=== PATIENT | male | born 1960 | race Two or more races ===

== ENCOUNTER 2020-05-21 16:54 | Emergency (ER) | payer MEDICARE, MEDICAID ==
[~2020-05-21] VITALS: Ht 152.4 cm; Wt 59.0 kg
[2020-05-21 17:24] VITALS: BP 110/70
== END 2020-05-21 18:21 | disposition home or self-care (01) ==
LOC: ER 16:54
DX: R50.9 Fever, unspecified (principal); R06.02 Shortness of breath; R05 Cough; Z20.828 Contact with and (suspected) exposure to other viral communicable diseases
CPT/HCPCS: 71045; 99284; U0003

== ENCOUNTER → 2021-11-28 | Outpatient (CLI) | payer OTHER ==
[2021-11-28 07:12] LABS: Urine Amorphous Crystal FEW /hpf (None Seen); Urine Bacteria NONE SEEN /hpf (None Seen); Urine Blood Negative /uL (Negative); Urine Specific Gravity 1.015 (1.001-1.035); Urine WBC 1 /hpf (0 - 3)
[2021-11-28 07:25] LABS: Basophils # (auto) 0 10 ^3/uL (0-0.2); Basophils % (auto) 0.6 % (0.0-2.0); Eosinophils # (auto) 0.2 10 ^3/uL (0-0.8); Eosinophils % (auto) 3.6 % (0.0-7.0); Hematocrit 34.6 % (41.0-53.0); Hemoglobin 11.7 g/dL (13.5-17.5); Lymphocytes # (auto) 0.9 10 ^3/uL (0.4-5.4); Lymphocytes % (auto) 18.9 % (10.0-50.0); Mean Corpuscular Hemoglobin 31.1 pg (28.0-32.0); Mean Corpuscular Hgb Conc. 33.8 g/dL (32.0-36.0); Monocytes # (auto) 0.3 10 ^3/uL (0-1.3); Monocytes % (auto) 7.4 % (0.0-12.0); Neutrophils # (auto) 3.2 10 ^3/uL (1.6-8.6); Neutrophils % (auto) 69.5 % (37.0-80.0); Nucleated Red Blood Cells % 0.1 %; Red Blood Cells 3.75 10^6/uL (4.5-5.90); White Blood Cell 4.6 10^3/uL (4.4-10.8)
[2021-11-28 07:41] LABS: Albumin 3.6 g/dL (3.4-5.0); BUN/Creatinine Ratio 20.7; Calcium 9.1 mg/dL (8.5-10.1); Potassium 4.4 mmol/L (3.5-5.1)
[2021-11-28 07:45] LABS: Bilirubin, Total 0.4 mg/dL (0.2-1.0)
== END | disposition home or self-care (01) ==
LOC: LAB 06:44
PROVIDERS: ATTEND Student in an Organized Health Care Education/Training Program
DX: E11.9 Type 2 diabetes mellitus without complications (principal); I10 Essential (primary) hypertension
CPT/HCPCS: 36415; 80053; 80061; 81001; 82043; 83036; 84153; 84443; 85025

== ENCOUNTER → 2022-06-12 | Outpatient (CLI) | payer OTHER | END | disposition home or self-care (01) | LOC: LAB 11:48 | PROVIDERS: ATTEND Urology | DX: R97.20 Elevated prostate specific antigen [PSA] (principal) | CPT/HCPCS: 84153 ==

== ENCOUNTER 2022-08-14 07:20 | Day surgery (SDC) | payer OTHER ==
[2022-08-11 11:12] LABS: Basophils # (auto) 0 10 ^3/uL (0-0.2); Basophils % (auto) 0.7 % (0.0-2.0); Eosinophils # (auto) 0.2 10 ^3/uL (0-0.8); Hematocrit 36.4 % (41.0-53.0); Hemoglobin 11.8 g/dL (13.5-17.5); Lymphocytes # (auto) 0.8 10 ^3/uL (0.4-5.4); Lymphocytes % (auto) 21.8 % (10.0-50.0); Mean Corpuscular Hgb Conc. 32.4 g/dL (32.0-36.0); Mean Corpuscular Volume 92.5 fL (80.0-100.0); Monocytes # (auto) 0.3 10 ^3/uL (0-1.3); Monocytes % (auto) 6.7 % (0.0-12.0); Neutrophils # (auto) 2.5 10 ^3/uL (1.6-8.6); Neutrophils % (auto) 65.8 % (37.0-80.0); Nucleated Red Blood Cells % 0.2 %; Red Blood Cells 3.94 10^6/uL (4.5-5.90); Red Cell Distribution Width 13.9 % (11.8-14.3); White Blood Cell 3.8 10^3/uL (4.4-10.8)
[2022-08-11 11:52] LABS: Urine Bacteria FEW /hpf (None Seen); Urine Blood Negative /uL (Negative); Urine Mucus FEW (None Seen); Urine Specific Gravity 1.019 (1.001-1.035); Urine WBC 1 /hpf (0 - 3)
[2022-08-11 11:59] LABS: Albumin 3.7 g/dL (3.4-5.0); Calcium 9.1 mg/dL (8.5-10.1); Potassium 4.7 mmol/L (3.5-5.1)
[2022-08-11 12:04] LABS: Bilirubin, Total 0.5 mg/dL (0.2-1.0); Total Protein 6.9 g/dL (6.4-8.2)
[2022-08-11 12:07] LABS: INR 1.03 (0.9-1.15); Partial Thromboplastin Time 26.8 sec (24.6-33.4)
[~2022-08-14] VITALS: Ht 152.4 cm; Wt 60.8 kg
[~2022-08-14 07:20] MED LIST: ACET325T82 PO; ASPI1TAB20 PO; BACL20TA PO; CETI10TA2 PO; DOCU100T15 PO; FENO160T8 PO; FINA5TAB4 PO; GABA300C10 PO; INSUINJ37 SC; LOSA-69 PO; METF-372 PO; MORP15TA PO; OMEP20TA PO; PIOG1TAB51 OR; SIMV10TA84 PO; TAMS0.4C36 PO; TRIA0.1O TOP
[2022-08-14] MEDS ORDERED: CIPROFLOXACIN 400MG/200ML 200 ML IV ONE (08:02)
[2022-08-14] MEDS ORDERED: HYDROmorphone HCL 2 MG/ML VL/or syr IV PRN ×2 (08:30)
[2022-08-14] MEDS ORDERED: MORPHINE SULFATE 4 MG/ML SYR/VIAL IV PRN (08:30)
[2022-08-14] MEDS ORDERED: METOCLOPRAMIDE HCL 5MG/ml INJ 2ml VIAL IV PRN (08:30)
[2022-08-14] MEDS ORDERED: SODIUM CHLORIDE LOCK 10 ML ONE (08:38)
[2022-08-14] MEDS ORDERED: DexAMETHasone SOD PHOS 10MG/1ML VIAL INJ ONE (08:38)
[2022-08-14] MEDS ORDERED: PROPOFOL 10 MG/ML 20 ML IV ONE (08:38)
[2022-08-14] MEDS ORDERED: MIDAZOLAM HCL 2MG/2ML 2ml VIAL (1mg/ml) ONE (08:38)
[2022-08-14] MEDS ORDERED: KETAMINE HCL 10 ML ONE (08:38)
[2022-08-14] MEDS ORDERED: fentaNYL CITRATE 100 MCG/2 ML VL ONE (08:38)
[2022-08-14] MEDS ORDERED: IOHEXOL 300 MG/ML 100ML BOTTLE IJ ONE (10:18)
[2022-08-14] MEDS ORDERED: LIDOCAINE 2% JELLY 11ml (GLYDO) ONE (10:20)
[2022-08-14 12:45] VITALS: BP 165/51
== END 2022-08-14 13:18 | disposition home or self-care (01) ==
LOC: SUR 07:20
PROVIDERS: ATTEND Urology
DX: N35.919 Unspecified urethral stricture, male, unspecified site (principal); I10 Essential (primary) hypertension; E11.9 Type 2 diabetes mellitus without complications; Z20.822 Contact with and (suspected) exposure to COVID-19; Z79.899 Other long term (current) drug therapy; Z79.84 Long term (current) use of oral hypoglycemic drugs; N40.1 Benign prostatic hyperplasia with lower urinary tract symptoms; N13.8 Other obstructive and reflux uropathy
CPT/HCPCS: 36415; 52276; 80053; 81001; 82962; 85025; 85610; 85730; 86850; 86900; 86901; J0744; J1100; J2250; J2704; J3010; U0003

== ENCOUNTER 2023-10-22 08:05 | Day surgery (SDC) | payer OTHER, MEDICAID ==
[2023-10-16 13:20] LABS: Basophils # (auto) 0 10 ^3/uL (0-0.2); Basophils % (auto) 0.5 % (0.0-2.0); Eosinophils # (auto) 0.1 10 ^3/uL (0-0.8); Eosinophils % (auto) 2.8 % (0.0-7.0); Hematocrit 36.1 % (41.0-53.0); Hemoglobin 11.9 g/dL (13.5-17.5); Lymphocytes % (auto) 23.5 % (10.0-50.0); Mean Corpuscular Hemoglobin 30.7 pg (28.0-32.0); Mean Corpuscular Hgb Conc. 32.8 g/dL (32.0-36.0); Mean Corpuscular Volume 93.5 fL (80.0-100.0); Monocytes # (auto) 0.3 10 ^3/uL (0-1.3); Monocytes % (auto) 7.4 % (0.0-12.0); Neutrophils # (auto) 2.8 10 ^3/uL (1.6-8.6); Neutrophils % (auto) 65.8 % (37.0-80.0); Red Blood Cells 3.86 10^6/uL (4.5-5.90); Red Cell Distribution Width 14.1 % (11.8-14.3); White Blood Cell 4.2 10^3/uL (4.4-10.8)
[2023-10-16 13:49] LABS: Urine Bacteria NONE SEEN /hpf (None Seen); Urine Blood Negative /uL (Negative); Urine Clarity Clear (Clear); Urine Color Yellow (Yellow); Urine Protein, UAD TRACE (Negative); Urine Specific Gravity 1.022 (1.001-1.035); Urine Urobilinogen Normal (Negative); Urine WBC <1 /hpf (0 - 3); Urine pH 6.5 (5.0-8.0)
[2023-10-16 13:58] LABS: INR 1.03 (0.9-1.15); Partial Thromboplastin Time 27.6 SEC (24.5-34.5); Prothrombin Time 10.8 sec (9.3-11.8)
[2023-10-16 14:08] LABS: Alanine Aminotransferase 25 U/L (7-40); Alkaline Phosphatase 60 U/L (46-116); Anion Gap 8 (5-15); Aspartate Aminotransferase 25 U/L (13-40); BUN/Creatinine Ratio 17.9 (10.0-20.0); Blood Urea Nitrogen 15 mg/dL (9-23); Carbon Dioxide 25 mmol/L (20-30); Chloride 105 mmol/L (98-107); Glucose 192 mg/dL (74-106); Potassium 4.6 mmol/L (3.5-5.1); Sodium 138 mmol/L (136-145)
[2023-10-16 14:09] LABS: Albumin 4.2 g/dL (3.2-4.8); Bilirubin, Total 0.5 mg/dL (0.2-1.0); Total Protein 6.6 g/dL (5.7-8.2)
[~2023-10-22] VITALS: Ht 152.4 cm; Wt 63.5 kg
[~2023-10-22 08:05] MED LIST changes: +FENO160T PO; -FENO160T8 PO; +GABA-1250 PO; -GABA300C10 PO; -LOSA-69 PO; +LOSA50TA46 PO; +SIMV10TA20 PO; -SIMV10TA84 PO
[2023-10-22 09:45] VITALS: RESP 10; TEMP 97; O2SAT 98
[2023-10-22 10:15] VITALS: BP 119/63; PULSE 66; RESP 12; O2SAT 98
[2023-10-22] MEDS ORDERED: HYDROmorphone HCL 2 MG/ML VL/or syr IV PRN (10:15)
[2023-10-22] MEDS ORDERED: LABETALOL HCL 5 MG/ML 4ML SYRINGE IV PRN (10:15)
[2023-10-22] MEDS ORDERED: MIDAZOLAM HCL 2MG/2ML 2ml VIAL (1mg/ml) IV PRN (10:15)
[2023-10-22] MEDS ORDERED: MORPHINE SULFATE 4 MG/ML SYR/VIAL IV PRN (10:15)
[2023-10-22] MEDS ORDERED: ePHEDrine SULFATE 50 MG/ML AMP IV PRN (10:15)
[2023-10-22] MEDS ORDERED: ONDANSETRON HCL 4 MG/2 ML VIAL IV PRN (10:15)
== END 2023-10-22 10:34 | disposition home or self-care (01) ==
LOC: SUR 08:05
PROVIDERS: ATTEND Urology
DX: R35.1 Nocturia (principal); N35.919 Unspecified urethral stricture, male, unspecified site; I10 Essential (primary) hypertension; E11.9 Type 2 diabetes mellitus without complications; R39.15 Urgency of urination; R35.0 Frequency of micturition; E78.5 Hyperlipidemia, unspecified; Z79.899 Other long term (current) drug therapy; Z79.84 Long term (current) use of oral hypoglycemic drugs; K21.9 Gastro-esophageal reflux disease without esophagitis
CPT/HCPCS: 36415; 52281; 80053; 81001; 82962; 85025; 85610; 85730; 87086; C1769; J7030

== ENCOUNTER → 2023-11-30 | Outpatient (CLI) | payer OTHER, MEDICAID ==
[2023-11-30 11:08] LABS: Urine Bacteria NONE SEEN /hpf (None Seen); Urine Blood Negative /uL (Negative); Urine Clarity Clear (Clear); Urine Color Yellow (Yellow); Urine Protein, UAD Negative (Negative); Urine Specific Gravity 1.016 (1.001-1.035); Urine Urobilinogen Normal (Negative); Urine WBC <1 /hpf (0 - 3)
== END | disposition home or self-care (01) ==
LOC: LAB 10:50
PROVIDERS: ATTEND Urology
DX: R35.1 Nocturia (principal)
CPT/HCPCS: 81001; 87086

== ENCOUNTER → 2024-11-29 | Outpatient (CLI) | payer MEDICARE, MEDICAID ==
[~2024-11-29] MED LIST changes: +LOSA-534 PO; -LOSA50TA46 PO; -TAMS0.4C36 PO; +TAMS0.4C39 PO
[2024-11-29 10:09] LABS: Urine Blood Negative /uL (Negative); Urine Clarity Clear (Clear); Urine Color Colorless (Yellow); Urine Protein, UAD TRACE (Negative); Urine Specific Gravity 1.012 (1.001-1.035); Urine Squamous Epithelial Cell None Seen /hpf (<5); Urine Urobilinogen Normal (Negative); Urine pH 7.5 (5.0-9.0)
[2024-11-29 10:10] LABS: Basophils # (auto) 0 10 ^3/uL (0-0.2); Basophils % (auto) 0.6 % (0.0-2.0); Eosinophils # (auto) 0.5 10 ^3/uL (0-0.8); Eosinophils % (auto) 9.7 % (0.0-7.0); Hematocrit 36.8 % (41.0-53.0); Hemoglobin 12.4 g/dL (13.5-17.5); Mean Corpuscular Hgb Conc. 33.7 g/dL (32.0-36.0); Mean Corpuscular Volume 92.1 fL (80.0-100.0); Monocytes # (auto) 0.4 10 ^3/uL (0-1.3); Monocytes % (auto) 7.2 % (0.0-12.0); Neutrophils # (auto) 3.5 10 ^3/uL (1.6-8.6); Neutrophils % (auto) 64.5 % (37.0-80.0); Platelet Count (auto) 248 10^3/uL (140-450); White Blood Cell 5.4 10^3/uL (4.4-10.8)
[2024-11-29 10:18] LABS: Alanine Aminotransferase 29 U/L (7-40); Albumin 4.6 g/dL (3.2-4.8); Alkaline Phosphatase 86 U/L (46-116); Anion Gap 8 (5-15); Aspartate Aminotransferase 19 U/L (13-40); Blood Urea Nitrogen 17 mg/dL (9-23); Carbon Dioxide 25 mmol/L (20-31); Chloride 105 mmol/L (98-107); LDL Cholesterol 75 mg/dL (< 100); Sodium 138 mmol/L (136-145); Triglycerides 147 mg/dL (< 150)
[2024-11-29 10:19] LABS: Bilirubin, Total 0.4 mg/dL (0.2-1.0); Cholesterol 128 mg/dL (< 200)
[2024-11-29 10:27] LABS: Glucose 219 mg/dL (74-106); HDL Cholesterol 40 mg/dL (40-59)
[2024-11-29 12:01] LABS: Urine Bacteria FEW /hpf (None Seen); Urine WBC < 1 /HPF (0-3)
[2024-11-29 12:37] LABS: Creatinine, Urine 18.58 mg/dL (30.0-125.0)
== END | disposition home or self-care (01) ==
LOC: LAB 09:18
PROVIDERS: ATTEND Student in an Organized Health Care Education/Training Program
DX: N40.1 Benign prostatic hyperplasia with lower urinary tract symptoms (principal); I10 Essential (primary) hypertension; E11.9 Type 2 diabetes mellitus without complications; K21.9 Gastro-esophageal reflux disease without esophagitis
CPT/HCPCS: 36415; 80053; 80061; 81001; 82043; 82570; 83036; 84153; 84443; 85025

== ENCOUNTER → 2025-01-13 | Outpatient (CLI) | payer OTHER, MEDICAID ==
[2025-01-13 06:34] LABS: Urine Bacteria None Seen /hpf (None Seen)
[2025-01-13 08:54] LABS: Urine Blood Negative /uL (Negative); Urine Clarity Clear (Clear); Urine Color Light-Yellow (Yellow); Urine Protein, UAD TRACE (Negative); Urine Specific Gravity 1.013 (1.001-1.035); Urine Squamous Epithelial Cell None Seen /hpf (<5); Urine Urobilinogen Normal (Negative); Urine WBC < 1 /HPF (0-3); Urine pH 6.5 (5.0-9.0)
== END | disposition home or self-care (01) ==
LOC: LAB 06:31
PROVIDERS: ATTEND Urology
DX: N40.0 Benign prostatic hyperplasia without lower urinary tract symptoms (principal)
CPT/HCPCS: 81001; 87086; 87088; 87186

== ENCOUNTER → 2025-03-31 | Day surgery (SDC) | payer MEDICAID ==
[2025-03-30 09:32] LABS: Urine Bacteria None Seen /hpf (None Seen)
[2025-03-30 09:42] LABS: Basophils # (auto) 0 10 ^3/uL (0-0.2); Basophils % (auto) 0.5 % (0.0-2.0); Eosinophils # (auto) 0.2 10 ^3/uL (0-0.8); Eosinophils % (auto) 2.9 % (0.0-7.0); Hematocrit 35.6 % (41.0-53.0); Hemoglobin 11.9 g/dL (13.5-17.5); Lymphocytes # (auto) 0.7 10 ^3/uL (0.4-5.4); Lymphocytes % (auto) 11.9 % (10.0-50.0); Mean Corpuscular Hemoglobin 30.2 pg (28.0-32.0); Mean Corpuscular Hgb Conc. 33.5 g/dL (32.0-36.0); Mean Corpuscular Volume 90.2 fL (80.0-100.0); Monocytes # (auto) 0.3 10 ^3/uL (0-1.3); Neutrophils # (auto) 4.5 10 ^3/uL (1.6-8.6); Neutrophils % (auto) 78.7 % (37.0-80.0); Platelet Count (auto) 213 10^3/uL (140-450); Red Blood Cells 3.95 10^6/uL (4.5-5.90); White Blood Cell 5.7 10^3/uL (4.4-10.8)
[2025-03-30 09:52] LABS: Urine Blood Negative /uL (Negative); Urine Clarity Clear (Clear); Urine Color Light-Yellow (Yellow); Urine Protein, UAD TRACE (Negative); Urine Specific Gravity 1.018 (1.001-1.035); Urine Squamous Epithelial Cell None Seen /hpf (<5); Urine Urobilinogen Normal (Negative); Urine WBC < 1 /HPF (0-3)
[2025-03-30 09:56] LABS: INR 0.92 (0.9-1.15); Partial Thromboplastin Time 27.1 SEC (24.5-34.5); Prothrombin Time 9.8 sec (9.3-11.8)
[2025-03-30 10:09] LABS: Alanine Aminotransferase 24 U/L (7-40); Albumin 4.2 g/dL (3.2-4.8); Alkaline Phosphatase 102 U/L (46-116); Anion Gap 7 (5-15); Aspartate Aminotransferase 14 U/L (13-40); BUN/Creatinine Ratio 23.4 (10.0-20.0); Blood Urea Nitrogen 18 mg/dL (9-23); Calcium 10.3 mg/dL (8.7-10.4); Carbon Dioxide 27 mmol/L (20-31); Chloride 104 mmol/L (98-107); Potassium 4.7 mmol/L (3.5-5.1); Sodium 138 mmol/L (136-145); Total Protein 6.7 g/dL (5.7-8.2)
[2025-03-30 10:10] LABS: Bilirubin, Total 0.4 mg/dL (0.2-1.0)
[2025-03-30 10:15] LABS: Glucose 289 mg/dL (74-106)
[~2025-03-31] VITALS: Ht 152.4 cm; Wt 63.5 kg
[~2025-03-31] MED LIST changes: -ACET325T82 PO; -BACL20TA PO; -CETI10TA2 PO; +CIPROFLOXACIN 400MG/200ML 200 ML IV ONE; -FENO160T PO; -GABA-1250 PO; +HYDROmorphone HCL 2 MG/ML VL/or syr IV PRN; -INSUINJ37 SC; +METOCLOPRAMIDE HCL 5MG/ml INJ 2ml VIAL IV ONE; +METOCLOPRAMIDE HCL 5MG/ml INJ 2ml VIAL ONE; +MIDAZOLAM HCL 2MG/2ML 2ml VIAL (1mg/ml) ONE; -MORP15TA PO; +ONDANSETRON HCL 4 MG/2 ML VIAL IV ONE; +ONDANSETRON HCL 4 MG/2 ML VIAL ONE; +PROPOFOL 10 MG/ML 20 ML IV ONE; -SIMV10TA20 PO; +SIMV20TA20 PO; +SITA50TA PO; +SODIUM CHLORIDE LOCK 20 ML ONE; +SUCR1TAB31 OR; +TRAM-626 PO; -TRIA0.1O TOP; +ePHEDrine SULFATE 50 MG/ML AMP ONE; +fentaNYL CITRATE 100 MCG/2 ML VL ONE; +hydrALAZINE HCL 20 MG/ML VL IV PRN
[2025-03-31] MEDS: ONABOTULINUMTOXINA 200 UNIT INJ IM ONE (10:33)
[2025-03-31 10:50] VITALS: PULSE 95; RESP 10; TEMP 97.8; O2SAT 95
--- NOTE | 2025-03-31 10:58 | DVHNC2 ---
Procedure - OPERATIVE REPORT Pre-op. Diagnosis: Refractory OAB Urinary frequency /Nocturia 5-8 times Urinary urgency Urge incontinence history of urethral stricture disease Post-op. Diagnosis: Same as pre-op diagnosis Operation: Cystoscopy with intravesical Botox injections (39576) cystoscopy with urethral calibration Anesthesia: General Indications: Patient has refarctory OAB with severe urinary frequency/urgency. He is a candidate for sacral nerve stimulation trial, but his insurance denied it INFORMED CONSENT: Indications, risks, complications, alternatives and benefits of cystoscopy with direct visual internal urethrotomy and possible intravesical Botox injections are discussed with patient. All questions were encouraged and answered. Patient is aware of specific risks/complications including but not limited to infection, bleeding, persistent urinary hematuria, urinary incontinence and urinary retention. Patient consented to proceed. Details of Procedure: PROCEDURE IN DETAIL: Patient is taken to Operating suite and given appropriate anesthesia. After prepping and draping the patient in the lithotomy position, 21 F rigid cystoscope is introduced into the bladder. There was no significant urethral stricture disease noted. He did have some proximal stenosis that was dilated by cystoscope. Internal urethrotomy was not necessary.Next Cystoscopic injection of Botox 10 u per 1 cc at 20 sites in the posterior bladder wall in the grid fashion is performed using the 21 G transurethral Laborie needle. Minimal bleeding is noted. Cystoscope is removed. Patient tolerated the procedure well. Patient is awakened and taken to in stable condition. DISPOSITION: Discharge to home after voided . RTC 2 weeks. DOUG RAMIREZ MD March 31, 2025 10:58
--- NOTE | 2025-03-31 10:59 | DVHDS2 ---
New Physician D'charge PN Admitting Diagnosis Admitting Diagnosis Urethral stricture disease Refractory overactive bladder Discharge Diagnosis Same Operations or Procedures Cystoscopy with urethral calibration and intravesical Botox injection Reason(s) For Hospitalization Surgery Treatment Plan Discharge Condition of Discharge Good Disposition Home Discharge Instructions Diet: Regular Activity: Light activity Activity comment: Follow up two weeks Medications: Given Follow Up Care Discharge Statement: "Patient was advised to return to the ER or call 911 if any headaches, dizziness, shortness of breath, chest pain, abdominal pain, bleeding, fevers, or worsening of medical condition. Patient was counseled about treatment plan, medications, possible side effects, patientverbalized understanding. All questions were answered to the best of my ability. This discharge took greater then 30 minutes in planning, reviewing documentation, counseling the patient, and discussing with other team members." DOUG RAMIREZ MD March 31, 2025 10:58
[2025-03-31 12:15] VITALS: BP 152/78; PULSE 87; RESP 12; O2SAT 94
== END | disposition home or self-care (01) ==
LOC: SUR 08:01
PROVIDERS: ATTEND Urology
DX: N32.81 Overactive bladder (principal); N40.1 Benign prostatic hyperplasia with lower urinary tract symptoms; N39.41 Urge incontinence; N35.919 Unspecified urethral stricture, male, unspecified site; R35.0 Frequency of micturition; I10 Essential (primary) hypertension; E11.9 Type 2 diabetes mellitus without complications; K21.9 Gastro-esophageal reflux disease without esophagitis; M81.0 Age-related osteoporosis without current pathological fracture; Z79.899 Other long term (current) drug therapy; Z86.12 Personal history of poliomyelitis; Z98.890 Other specified postprocedural states
CPT/HCPCS: 36415; 52287; 80053; 81001; 82962; 85025; 85610; 85730; 87086; J0585; J0744; J2250; J2405; J2704; J2765; J3010

== ENCOUNTER 2025-06-15 09:16 | Outpatient (CLI) | payer MEDICAID ==
[~2025-06-15 09:16] MED LIST changes: -CIPROFLOXACIN 400MG/200ML 200 ML IV ONE; -HYDROmorphone HCL 2 MG/ML VL/or syr IV PRN; -METOCLOPRAMIDE HCL 5MG/ml INJ 2ml VIAL IV ONE; -METOCLOPRAMIDE HCL 5MG/ml INJ 2ml VIAL ONE; -MIDAZOLAM HCL 2MG/2ML 2ml VIAL (1mg/ml) ONE; -ONDANSETRON HCL 4 MG/2 ML VIAL IV ONE; -ONDANSETRON HCL 4 MG/2 ML VIAL ONE; -PROPOFOL 10 MG/ML 20 ML IV ONE; -SODIUM CHLORIDE LOCK 20 ML ONE; -ePHEDrine SULFATE 50 MG/ML AMP ONE; -fentaNYL CITRATE 100 MCG/2 ML VL ONE; -hydrALAZINE HCL 20 MG/ML VL IV PRN
[2025-06-15 09:35] LABS: Hematocrit 35.7 % (41.0-53.0); Hemoglobin 12.1 g/dL (13.5-17.5); Mean Corpuscular Hemoglobin 31.1 pg (28.0-32.0); Mean Corpuscular Volume 91.5 fL (80.0-100.0); Nucleated Red Blood Cells % 0.0 %
[2025-06-15 10:00] LABS: Urine Protein, UAD TRACE (Negative)
[2025-06-15 10:29] LABS: Alanine Aminotransferase 22 U/L (7-40); Albumin 4.2 g/dL (3.2-4.8); Alkaline Phosphatase 75 U/L (46-116); Anion Gap 9 (5-15); BUN/Creatinine Ratio 19.7 (10.0-20.0); Bilirubin, Total 0.4 mg/dL (0.2-1.0); Blood Urea Nitrogen 15 mg/dL (9-23); Calcium 9.4 mg/dL (8.7-10.4); Carbon Dioxide 25 mmol/L (20-31); Chloride 104 mmol/L (98-107); Potassium 4.3 mmol/L (3.5-5.1); Sodium 138 mmol/L (136-145); Total Protein 6.5 g/dL (5.7-8.2)
[2025-06-15 10:33] LABS: Glucose 235 mg/dL (74-106)
[2025-06-15 11:20] LABS: Microalb/Creat Ratio, Urine 403.0
== END 2025-06-15 17:00 | disposition home or self-care (01) ==
LOC: LAB 09:16
PROVIDERS: ATTEND Student in an Organized Health Care Education/Training Program
DX: N40.0 Benign prostatic hyperplasia without lower urinary tract symptoms (principal); I10 Essential (primary) hypertension; E11.9 Type 2 diabetes mellitus without complications
CPT/HCPCS: 36415; 80053; 81001; 82043; 82570; 83036; 84153; 85025

== ENCOUNTER → 2025-09-12 | Outpatient (CLI) | payer MEDICAID ==
[2025-09-12 09:05] LABS: Urine Protein, UAD 1+ (Negative)
[2025-09-12 09:24] LABS: Alanine Aminotransferase 22 U/L (7-40); Albumin 4.1 g/dL (3.2-4.8); Alkaline Phosphatase 78 U/L (46-116); BUN/Creatinine Ratio 26.1 (10.0-20.0); Blood Urea Nitrogen 23 mg/dL (9-23); Calcium 9.6 mg/dL (8.7-10.4); Carbon Dioxide 26 mmol/L (20-31); Potassium 4.6 mmol/L (3.5-5.1); Sodium 141 mmol/L (136-145); Total Protein 7.0 g/dL (5.7-8.2)
[2025-09-12 09:25] LABS: Bilirubin, Total 0.4 mg/dL (0.2-1.0); Glucose 130 mg/dL (74-106)
[2025-09-12 09:47] LABS: Anion Gap 10 (5-15); Chloride 105 mmol/L (98-107)
== END | disposition home or self-care (01) ==
LOC: LAB 08:37
PROVIDERS: ATTEND Student in an Organized Health Care Education/Training Program
DX: I10 Essential (primary) hypertension (principal); E11.9 Type 2 diabetes mellitus without complications
CPT/HCPCS: 36415; 80053; 81001; 83036